=== PATIENT | female | born 2000 ===

== ENCOUNTER 2025-10-13 06:22 | Day surgery (SDC) | payer BC, SELFPAY | END 2025-10-13 16:21 | disposition home or self-care (01) | LOC: GI 06:22 | PROVIDERS: ATTENDING PHYSICIAN Internal Medicine Gastroenterology | DX: Z12.11 Encounter for screening for malignant neoplasm of colon (principal); Z80.0 Family history of malignant neoplasm of digestive organs; K62.5 Hemorrhage of anus and rectum | CPT/HCPCS: G0105 ==